=== PATIENT | female | born 1945 | race Asian ===

== ENCOUNTER 2021-05-04 11:29 | Inpatient (IN) | payer MEDICARE, SELFPAY ==
[~2021-05-04] VITALS: Ht 167.6 cm; Wt 77.1 kg
[2021-05-04 11:32] VITALS: BP 139/97
--- NOTE | 2021-05-04 11:35 | NUR ---
PT DEVYN AND TAKEN TO BED 12 [facility]
[2021-05-04] MEDS ORDERED: DILTIAZEM 25 MG/5 ML VIAL IVP ONE ×2 (11:45→13:00)
--- NOTE | 2021-05-04 11:46 | NUR ---
75Y FEMALE BIBA FROM [facility] DUE TO IRREGULAR HEARTBEAT. PER EMS PT WAS AT F/U APPT WHEN 12 LEAD EKG SHOWED A. FIB. PT DENIES ANY PAIN AT THIS TIME. PT DENIES ANY SOB, CHEST PAIN, N/V, LIGHT HEADEDNESS. BREATH SOUNDS CLEAR. PT CURRENTLY A&OX4, SKIN DRY AND INTACT AT THIS TIME. PMH: A. FIB, HTN, HLD, CVA (X-MAS JOSE ANGEL, SLURRED SPEECH DEFECIT) NKA
--- NOTE | 2021-05-04 13:00 | NUR ---
DR. PUGA BEDSIDE EVALUATING PT
--- NOTE | 2021-05-04 13:19 | NUR ---
LAB AT PATIENT BEDSIDE COLLECTING BLOODWORK
--- NOTE | 2021-05-04 13:26 | NUR ---
XRAY AT PATIENT BEDSIDE
[2021-05-04] MEDS ORDERED: ASPI-1749 PO (13:43)
[2021-05-04] MEDS ORDERED: LISI-487 PO (13:43)
[2021-05-04] MEDS ORDERED: CLOP75TA26 PO (13:43)
[2021-05-04] MEDS ORDERED: ATOR20TA40 PO (13:43)
--- NOTE | 2021-05-04 13:43 | NUR ---
MED REC COMPLETED
[2021-05-04 13:44] LABS: BASOPHILS % (AUTO) 0.6 % (0.0-2.0); EOSINOPHILS % (AUTO) 0.5 % (0.0-4.0); HEMATOCRIT 44.5 % (36-48); HEMOGLOBIN 14.4 g/dL (12.0-16.0); LYMPHOCYTES # (AUTO) 0.8 K/uL (2.5-16.5); LYMPHOCYTES % (AUTO) 14.8 % (20.5-51.1); MEAN CORPUSCULAR HEMOGLOBIN 31 pg (27-31); MEAN CORPUSCULAR HGB CONC 32 g/dL (33-37); MEAN CORPUSCULAR VOLUME 95.3 fL (80-94); MONOCYTES # (AUTO) 0.3 K/uL (0.8-1.0); MONOCYTES % (AUTO) 5.7 % (1.7-9.3); NEUTROPHILS # (AUTO) 4.3 K/uL (1.8-7.7); NEUTROPHILS % (AUTO) 78.4 % (42.2-75.2); PLATELET COUNT (AUTO) 256 K/uL (140-450); RED BLOOD CELL COUNT(AUTO) 4.67 MIL/uL (4.20-5.40); RED CELL DISTRIBUTION WIDTH 13.5 % (11.6-13.7); WHITE BLOOD COUNT (AUTO) 5.5 K/uL (4.8-10.8)
--- NOTE | 2021-05-04 14:02 | NUR ---
Patient appears to be resting comfortably in bed. Vital Signs within normal limits. Respirations even and unlabored.
[2021-05-04 14:06] LABS: ALBUMIN 3.7 g/dL (3.4-5.0); ANION GAP 14.7 (8-16); ASPARTATE AMINOTRANSFERASE 17 U/L (15-37); CARBON DIOXIDE 24.8 mmol/L (21-32); CHLORIDE 107 mmol/L (98-107); CREATININE 1.1 mg/dL (0.6-1.3); GLUCOSE 91 mg/dL (74-106); POTASSIUM 4.5 mmol/L (3.5-5.1); SODIUM SERUM 142 mmol/L (136-145); TOTAL BILIRUBIN 0.7 mg/dL (0.0-1.0); UREA NITROGEN, BLOOD 13 mg/dL (7-18)
[2021-05-04] MEDS ORDERED: MORPHINE SULFATE 2 MG/ML SYR IVP PRN (15:05)
[2021-05-04] MEDS ORDERED: ONDANSETRON 4 MG/2 ML VIAL IM/IVP PRN (15:05)
[2021-05-04] MEDS ORDERED: ACETAMINOPHEN 325 MG TAB PO PRN (15:05)
[2021-05-04] MEDS ORDERED: DOCUSATE SODIUM 100 MG GELCAP PO PRN (15:05)
[2021-05-04] MEDS ORDERED: MAGNESIUM OXIDE 400 MG TAB PO PRN (15:05)
[2021-05-04] MEDS ORDERED: POTASSIUM CHLORIDE 10 MEQ TABER PO PRN (15:05)
[2021-05-04] MEDS ORDERED: HYDROcodone/APAP 5/325 MG 1 TAB TAB PO PRN (15:05)
[2021-05-04] MEDS ORDERED: SODIUM PHOS / POTASSIUM PHOS 1 PKT PDR PO PRN (15:05)
--- NOTE | 2021-05-04 15:08 | NUR ---
PT ADMITTED UNDER DR. CUI TO TELE. PT CURRENTLY TELE HOLD IN ED BED 12
[2021-05-04] MEDS: NACL 0.9% 1,000 ML IV SCH (16:12)
[2021-05-04 16:30] LABS: MAGNESIUM 1.9 mg/dL (1.8-2.4); PHOSPHORUS 3.5 mg/dL (2.5-4.9); THYROID STIMULATING HORMONE 1.48 uIU/mL (0.34-3.74)
[2021-05-04] MEDS ORDERED: DIGOXIN 0.25 MG TAB PO SCH ×2 (17:08→23:00)
[2021-05-04] MEDS: METOPROLOL 50 MG TAB PO SCH (17:16)
--- NOTE | 2021-05-04 18:14 | NUR ---
Patient appears to be resting comfortably in bed. Vital Signs within normal limits. Respirations even and unlabored.
--- NOTE | 2021-05-04 19:39 | NUR ---
Pt report given to ALY SPENCER. Transfer of care at this time.
--- NOTE | 2021-05-04 20:46 | NUR ---
provided patient with urine cup when needing to go to the restroom patient is AAOx4 and has no defecits to extremities. Addendum: 05/04/21 at 2046 by [email or web address] or weakness to extremities
[2021-05-04] MEDS: ATORVASTATIN 20 MG TAB PO SCH (21:44)
--- NOTE | 2021-05-04 21:45 | NUR ---
patient ambulated to the bathroom with a steady gait for urine collection
[2021-05-04 23:35] LABS: APPEARANCE,URINE CLEAR (CLEAR); BILIRUBIN,URINE NEGATIVE (NEGATIVE); BLOOD, URINE NEGATIVE (NEGATIVE); COLOR,URINE YELLOW (YELLOW); LEUKOCYTE ESTERASE ,URINE NEGATIVE (NEGATIVE); NITRITE, URINE NEGATIVE (NEGATIVE); PH,URINE 6.5 (5.0-9.0); UGLUCOSE NEGATIVE (NEGATIVE)
[2021-05-04] MEDS: APIXABAN 2.5 MG TAB PO SCH (23:40)
--- NOTE | 2021-05-05 00:42 | NUR ---
provided patient with hot water and assisted repositioning patient for bed. patient denies any pain. No signs of distress noted. safety measures in place, attached to monitor and will continue to monitor patient.
--- NOTE | 2021-05-05 03:11 | NUR ---
patient ambulated to the bathroom with a steady gait.
[2021-05-05] MEDS ORDERED: DIGOXIN 0.25 MG TAB PO SCH (05:00)
--- NOTE | 2021-05-05 07:15 | NUR ---
Pt report given to Zhane LU. Transfer of care at this time.
--- NOTE | 2021-05-05 07:20 | NUR ---
REPORT RECEIVED FROM ALY SPENCER FOR TRANSFER OF CARE
--- NOTE | 2021-05-05 07:20 | NUR ---
Sarwat noel in [facility] - 05/05/21 at 1997 by RADHA REPORT RECEIVED FROM ALY SPENCER FOR TRANSFER OF CARE
[2021-05-05] MEDS: PANTOPRAZOLE 40 MG TABEC PO SCH (09:07)
[2021-05-05] MEDS: APIXABAN 2.5 MG TAB PO SCH ×2 (09:07→20:54)
[2021-05-05] MEDS: METOPROLOL 50 MG TAB PO SCH ×3 (09:07→17:18)
[2021-05-05] MEDS: lisinopriL 20 MG TAB PO SCH (09:08)
--- NOTE | 2021-05-05 10:07 | NUR ---
Patient appears to be resting comfortably in bed. Vital Signs within normal limits. Respirations even and unlabored.
[2021-05-05 10:16] LABS: BASOPHILS % (AUTO) 0.9 % (0.0-2.0); EOSINOPHILS % (AUTO) 0.8 % (0.0-4.0); HEMATOCRIT 42.7 % (36-48); HEMOGLOBIN 14.3 g/dL (12.0-16.0); LYMPHOCYTES # (AUTO) 0.8 K/uL (2.5-16.5); LYMPHOCYTES % (AUTO) 16.6 % (20.5-51.1); MEAN CORPUSCULAR HEMOGLOBIN 32 pg (27-31); MEAN CORPUSCULAR HGB CONC 34 g/dL (33-37); MEAN CORPUSCULAR VOLUME 94.2 fL (80-94); MONOCYTES # (AUTO) 0.3 K/uL (0.8-1.0); MONOCYTES % (AUTO) 6.4 % (1.7-9.3); NEUTROPHILS # (AUTO) 3.5 K/uL (1.8-7.7); NEUTROPHILS % (AUTO) 75.3 % (42.2-75.2); PLATELET COUNT (AUTO) 281 K/uL (140-450); RED BLOOD CELL COUNT(AUTO) 4.54 MIL/uL (4.20-5.40); RED CELL DISTRIBUTION WIDTH 13.7 % (11.6-13.7); WHITE BLOOD COUNT (AUTO) 4.6 K/uL (4.8-10.8)
[2021-05-05 10:24] LABS: ANION GAP 12.1 (8-16); CARBON DIOXIDE 27.2 mmol/L (21-32); CHLORIDE 108 mmol/L (98-107); GLUCOSE 86 mg/dL (74-106); POTASSIUM 5.3 mmol/L (3.5-5.1); SODIUM SERUM 142 mmol/L (136-145); UREA NITROGEN, BLOOD 13 mg/dL (7-18)
--- NOTE | 2021-05-05 10:37 | NUR ---
ECO TECH BEDSIDE PERFOMRING ECHO ON PATIENT
--- NOTE | 2021-05-05 12:50 | NUR ---
PT PROVIDED WITH LUNCH TRAY BEDSIDE
--- NOTE | 2021-05-05 13:48 | NUR ---
Patient appears to be resting comfortably in bed. Vital Signs within normal limits. Respirations even and unlabored.
--- NOTE | 2021-05-05 15:30 | NUR ---
PATIENT HAS BEEN SCREENED AND CATEGORIZED LOW NUTRITION RISK. PATIENT WILL BE SEEN WITHIN 7 DAYS OF ADMISSION. 05/11/[address]
[2021-05-05] MEDS: NACL 0.9% 1,000 ML IV SCH (15:49)
--- NOTE | 2021-05-05 17:59 | NUR ---
Patient appears to be resting comfortably in bed. Vital Signs within normal limits. Respirations even and unlabored.
--- NOTE | 2021-05-05 18:47 | NUR ---
PT PROVIDED WITH DINNER TRAY BEDSIDE
--- NOTE | 2021-05-05 19:28 | NUR ---
Pt report given to ALY HALE. Transfer of care at this time.
[2021-05-05] MEDS: ATORVASTATIN 20 MG TAB PO SCH (20:55)
--- NOTE | 2021-05-05 20:55 | NUR ---
MRSA SWAB COLLECTED AND WALKED TO LAB
--- NOTE | 2021-05-06 07:30 | NUR ---
RECEIVED REPORT FROM GEOFFREY LU, TRANSFER OF CARE AR THIS TIME. PT RESTING IN BED WITH EVEN AND UNLABORED RESPIRATIONS, PT ON CARDIAC MONITOS, NO SIGNS OF DISTRESS. PT DENIES ANY PAIN, WILL CONTINUE TO MONITOR.
--- NOTE | 2021-05-06 08:45 | NUR ---
PT GIVEN BREAKFAST TRAY, PT EATING QUIETLY IN BED, ALL NEEDS MET AT THIS TIME
[2021-05-06] MEDS: APIXABAN 2.5 MG TAB PO SCH ×2 (09:33→21:58)
[2021-05-06] MEDS: PANTOPRAZOLE 40 MG TABEC PO SCH (09:34)
[2021-05-06] MEDS: lisinopriL 20 MG TAB PO SCH (09:34)
[2021-05-06] MEDS: METOPROLOL 50 MG TAB PO SCH ×2 (09:34→21:59)
[2021-05-06] MEDS: DIGOXIN 0.25 MG TAB PO SCH (09:40)
[2021-05-06 10:30] LABS: ANION GAP 14.2 (8-16); CARBON DIOXIDE 27.9 mmol/L (21-32); CHLORIDE 109 mmol/L (98-107); CREATININE 1.1 mg/dL (0.6-1.3); GLUCOSE 95 mg/dL (74-106); POTASSIUM 5.1 mmol/L (3.5-5.1); SODIUM SERUM 146 mmol/L (136-145); UREA NITROGEN, BLOOD 15 mg/dL (7-18)
--- NOTE | 2021-05-06 10:56 | NUR ---
pt aox4 denies pain or discomfort. afib on monitor. iv intact and patent SL. nad. safety maintained
--- NOTE | 2021-05-06 11:13 | NUR ---
ASSUMED CARE FOR PATIENT AT THIS TIME
[2021-05-06 11:31] LABS: BASOPHILS # (AUTO) 0.1 K/uL (0.00-0.22); BASOPHILS % (AUTO) 1.1 % (0.0-2.0); EOSINOPHILS # (AUTO) 0.1 K/uL (0-0.4); EOSINOPHILS % (AUTO) 1.4 % (0.0-4.0); HEMATOCRIT 42.9 % (36-48); HEMOGLOBIN 14.3 g/dL (12.0-16.0); LYMPHOCYTES % (AUTO) 20.5 % (20.5-51.1); MEAN CORPUSCULAR HEMOGLOBIN 32 pg (27-31); MEAN CORPUSCULAR HGB CONC 33 g/dL (33-37); MEAN CORPUSCULAR VOLUME 94.7 fL (80-94); MONOCYTES # (AUTO) 0.3 K/uL (0.8-1.0); MONOCYTES % (AUTO) 6.9 % (1.7-9.3); NEUTROPHILS # (AUTO) 3.3 K/uL (1.8-7.7); NEUTROPHILS % (AUTO) 70.1 % (42.2-75.2); PLATELET COUNT (AUTO) 278 K/uL (140-450); RED BLOOD CELL COUNT(AUTO) 4.53 MIL/uL (4.20-5.40); RED CELL DISTRIBUTION WIDTH 13.9 % (11.6-13.7); WHITE BLOOD COUNT (AUTO) 4.8 K/uL (4.8-10.8)
[2021-05-06] MEDS ORDERED: DILTIAZEM 30 MG TAB ONE (13:01)
[2021-05-06] MEDS: DILTIAZEM 60 MG TAB PO SCH ×2 (13:04→21:58)
--- NOTE | 2021-05-06 15:54 | NUR ---
Patient appears to be resting comfortably in bed. Vital Signs within normal limits. Respirations even and unlabored.
[2021-05-06] MEDS: NACL 0.9% 1,000 ML IV SCH (18:08)
--- NOTE | 2021-05-06 19:24 | NUR ---
Pt report given to ALY BARNES. Transfer of care at this time.
--- NOTE | 2021-05-06 19:40 | NUR ---
PT IS AWAKE AND ALERT. DENIES CHEST PAIN AND SOB. VSS. PT IS IN STABLE CONDITION. ALL NEEDS MET AT THIS TIME. BED LOCKED IN LOWEST POSITION, SIDE RAILS X2 FOR SAFTEY.
--- NOTE | 2021-05-06 20:45 | NUR ---
PT AMBULATED TO AND BACK TO BED.
[2021-05-06] MEDS: ATORVASTATIN 20 MG TAB PO SCH (21:59)
--- NOTE | 2021-05-06 22:57 | NUR ---
PT HAS EYES CLOSED, OPENS TO SOUND. EQUAL RISE AND FALL OF CHEST WALL. BED LOCKED IN LOWEST POSITION, SIDE RAILS X2 FOR SAFETY.
--- NOTE | 2021-05-07 00:28 | NUR ---
PT HAS EYES CLOSED, OPENS TO SOUND. EQUAL RISE AND FALL OF CHEST WALL. VSS. PT IS IN STABLE CONDITION. BED LOCKED IN LOWEST POSITION, SIDE RAILS X2 FOR SAFETY.
--- NOTE | 2021-05-07 01:51 | NUR ---
PT AMBULATED TO AND BACK TO BED.
--- NOTE | 2021-05-07 03:40 | NUR ---
pt ambulated to and back to bed.
[2021-05-07] MEDS: DILTIAZEM 60 MG TAB PO SCH (05:00)
--- NOTE | 2021-05-07 06:47 | NUR ---
PT AMBUALTED TO RR AND BACK TO BED.
--- NOTE | 2021-05-07 07:31 | NUR ---
Pt report given to GERONIMO LU. Transfer of care at this time.
--- NOTE | 2021-05-07 07:31 | NUR ---
Report and continuation of care received from ALY Myrick.
--- NOTE | 2021-05-07 07:44 | NUR ---
Patient sitting in semi-fowlers position with both eyes open. laboratory monitor in place. No distress noted. Bed locked in lowest position, side rails x 2.
[2021-05-07 08:31] LABS: BASOPHILS % (AUTO) 0.5 % (0.0-2.0); EOSINOPHILS # (AUTO) 0.1 K/uL (0-0.4); EOSINOPHILS % (AUTO) 1.3 % (0.0-4.0); HEMATOCRIT 42.3 % (36-48); LYMPHOCYTES # (AUTO) 1.1 K/uL (2.5-16.5); LYMPHOCYTES % (AUTO) 23.3 % (20.5-51.1); MEAN CORPUSCULAR HEMOGLOBIN 31 pg (27-31); MEAN CORPUSCULAR HGB CONC 33 g/dL (33-37); MEAN CORPUSCULAR VOLUME 94.9 fL (80-94); MONOCYTES # (AUTO) 0.4 K/uL (0.8-1.0); MONOCYTES % (AUTO) 8.6 % (1.7-9.3); NEUTROPHILS # (AUTO) 3.2 K/uL (1.8-7.7); NEUTROPHILS % (AUTO) 66.3 % (42.2-75.2); PLATELET COUNT (AUTO) 276 K/uL (140-450); RED BLOOD CELL COUNT(AUTO) 4.46 MIL/uL (4.20-5.40); RED CELL DISTRIBUTION WIDTH 13.8 % (11.6-13.7); WHITE BLOOD COUNT (AUTO) 4.8 K/uL (4.8-10.8)
--- NOTE | 2021-05-07 08:49 | NUR ---
Per Dr. Anaya, hold lisinopril.
[2021-05-07] MEDS: APIXABAN 2.5 MG TAB PO SCH (08:57)
[2021-05-07] MEDS: METOPROLOL 50 MG TAB PO SCH (08:58)
[2021-05-07] MEDS: lisinopriL 20 MG TAB PO SCH (08:58)
[2021-05-07] MEDS: PANTOPRAZOLE 40 MG TABEC PO SCH (08:58)
[2021-05-07 09:02] LABS: ANION GAP 10.6 (8-16); CARBON DIOXIDE 28.4 mmol/L (21-32); CHLORIDE 109 mmol/L (98-107); CREATININE 0.9 mg/dL (0.6-1.3); GLUCOSE 107 mg/dL (74-106); SODIUM SERUM 143 mmol/L (136-145); UREA NITROGEN, BLOOD 14 mg/dL (7-18)
--- NOTE | 2021-05-07 09:06 | NUR ---
Breakfast mealtray at bedside. Patient self assisted and sitting upright in bed completing meal at this time.
--- NOTE | 2021-05-07 09:10 | NUR ---
Spoke with CLS states Digoxin should result in a few minutes.
[2021-05-07] MEDS: DIGOXIN 0.25 MG TAB PO SCH (09:14)
[2021-05-07] MEDS ORDERED: DILT60TA97 PO (09:52)
[2021-05-07] MEDS ORDERED: METO50TA99 PO (09:52)
[2021-05-07] MEDS ORDERED: ATOR20TA40 PO (09:52)
[2021-05-07] MEDS ORDERED: APIX2.5 PO (09:52)
[2021-05-07] MEDS ORDERED: DIGO-81 PO (09:52)
[2021-05-07 11:08] VITALS: BP 113/57
--- NOTE | 2021-05-07 11:29 | NUR ---
Patient discharged with v/s stable. Written and verbal after care instructions given AFIB and explained. Patient alert, oriented and verbalized understanding of instructions. Ambulatory with steady gait. All questions addressed prior to discharge. ID band removed. Patient advised to follow up with PMD. Rx of ATORVOSTATIN, ELIQUIS, given. Patient educated on indication of medication including possible reaction and side effects. Opportunity to ask questions provided and answered.
== END 2021-05-07 15:08 | disposition home or self-care (01) | DRG 310 ==
LOC: MED 11:29 → MTU 15:08
PROVIDERS: ADMIT Hospitalist; ATTEND Hospitalist
DX: I48.91 Unspecified atrial fibrillation (principal); E78.5 Hyperlipidemia, unspecified; Z20.822 Contact with and (suspected) exposure to COVID-19; Z86.73 Personal history of transient ischemic attack (TIA), and cerebral infarction without residual deficits; Z79.82 Long term (current) use of aspirin; Z79.899 Other long term (current) drug therapy; Z85.3 Personal history of malignant neoplasm of breast
CPT/HCPCS: 36415; 71045; 80048; 80053; 80162; 81003; 83735; 83880; 84100; 84443; 84484; 85025; 87081; 93005; 96374; 96376; 99285; J3490; Q0092